=== PATIENT | female | born 1965 ===

== ENCOUNTER 2017-04-26 08:36 | Day surgery (SDC) | payer OTHER ==
[2017-04-26 09:09] VITALS: BMI 29.2
[2017-04-26] MEDS ORDERED: Lidocaine Hydrochloride 5 ML INJ ONE (10:06)
[2017-04-26] MEDS ORDERED: Propofol 10 mg/ml Inj (20 ML) ONE (10:06)
[2017-04-26] MEDS ORDERED: Lactated Ringer's 1,000 ML IV ONE (10:15)
[2017-04-26] MEDS ORDERED: Bupivacaine HCl 0.5% PF (10 ml) Inj ONE (10:17)
[2017-04-26] MEDS ORDERED: methylPREDNISolone Depo 80 mg/ml Inj ONE (10:17)
[2017-04-26] MEDS ORDERED: Lidocaine 1% Inj (20ml) ONE (10:21)
[2017-04-26] MEDS ORDERED: Midazolam 2 MG/2 ML VIAL ONE (10:23)
[2017-04-26] MEDS ORDERED: Bupivacaine HCl 0.5% PF (10 ml) Inj IJ ONE (10:25)
[2017-04-26] MEDS ORDERED: Lidocaine 1% Inj (20ml) IJ ONE (10:25)
[2017-04-26] MEDS ORDERED: methylPREDNISolone Depo 80 mg/ml Inj IM ONE (10:25)
[2017-04-26] MEDS ORDERED: Lactated Ringer's 1,000 ML IV SCH (10:36)
[2017-04-26] MEDS ORDERED: HYDROmorphone 0.5 mg/0.5 ml ISec IVP PRN (10:36)
[2017-04-26 10:53] VITALS: RESP 18
[2017-04-26 12:02] VITALS: BP 138/77; PULSE 60; TEMP 98
--- NOTE | 2017-04-26 13:11 | PCM.OP ---
Operative Report - Operative Report Date of Surgery/Procedure: 04/26/17 Time of Surgery/Procedure: 10:30 Surgeon: Von Anesthesia/Sedation: Monitored anesthesia care Pre-Operative Diagnosis: Lumbar facet syndrome Post-Operative Diagnosis: Same Indication for Surgery: Intractable pain Operative Findings: See below. Procedure/Operation Description: V discussion of the procedure with the patient including its risks benefits alternatives all continue the possibility of no effect with increased pain patient consented to the procedure. She denies any recent infections bleeding tendencies or being on anticoagulants decision was then made to proceed to the OR. Patient was placed on a fluoroscopy table in a prone position with 2 pillows underneath her abdomen. The back was prepped and draped in the usual sterile fashion and sterile technique was adhered to drain and her procedure. The L3-L4 and L5 medial branch nerves are located at the intersection of the superior articular process and the transverse process at the L3-4 and L5 pedicle and also the sacral area. The procedure was first performed a right-sided return of fluoroscopy towards the right approximately 15 . The skin overlying the 3 above target areas was then infiltrated with 1% lidocaine using 25-gauge needle. Subsequently a 22-gauge 3-1/2 inch spinal needle was incrementally advanced under fluoroscopic guidance until tip in the midline contact with all 3 target areas. After satisfactory positioning of all 3 needles approximately 3 mL of 0.5% Marcaine and Depo-Medrol mixture was injected. The needle was then removed and same exact procedure was performed on the contralateral left side using the same medications and techniques. That L patient's back was clean and dry and bandages were applied. Patient was then transferred to the recovery area in good conditions without any signs of HOME CARE ATTENDANT toxicity or any neurological deficit. She will have a following office in approximately 2-3 weeks. End of dictation Estimated Blood Loss: None. Complications: None. Discharge & Condition: Stable to home.
[2017-04-26 13:14] VITALS: O2SAT 98
== END 2017-04-26 12:25 | disposition home or self-care (01) ==
LOC: H.OPSURG 08:36
PROVIDERS: ATTEND Anesthesiology
DX: M46.96 Unspecified inflammatory spondylopathy, lumbar region (principal)

== ENCOUNTER 2017-12-11 07:36 | Day surgery (SDC) | payer OTHER ==
[2017-12-11 08:21] VITALS: BMI 28.3
[2017-12-11] MEDS ORDERED: Propofol 10 mg/ml Inj (20 ML) ONE (08:52)
[2017-12-11] MEDS ORDERED: MIDAZOLAM HCL 10 MG/2 ML IV ONE (08:52)
[2017-12-11] MEDS ORDERED: Midazolam 2 MG/2 ML VIAL ONE ×2 (08:53→10:14)
[2017-12-11] MEDS ORDERED: Lidocaine 2% MPF (5 ml) Inj ONE (08:55)
[2017-12-11] MEDS ORDERED: methylPREDNISolone Depo 80 mg/ml Inj ONE (09:06)
[2017-12-11] MEDS ORDERED: Lidocaine 1% Inj (20ml) ONE (09:07)
[2017-12-11] MEDS ORDERED: Bupivacaine HCl 0.5% PF (10 ml) Inj ONE (09:07)
[2017-12-11] MEDS ORDERED: Lactated Ringer's 1,000 ML IV ONE (09:20)
[2017-12-11 10:56] VITALS: BP 152/90; PULSE 73; RESP 18; TEMP 97.8
[2017-12-11 11:00] VITALS: O2SAT 99
--- NOTE | 2017-12-11 11:52 | OP ---
PROCEDURE DATE: 12/11/2017 PREOPERATIVE DIAGNOSIS: Lumbar facet syndrome. POSTOPERATIVE DIAGNOSIS: Lumbar facet syndrome. PROCEDURE: Right L3, L4 and L5 medial branch nerve block. SURGEON: Ansley Longoria MD ANESTHESIOLOGIST: Dr. Mcintyre. TYPE OF ANESTHESIA: Monitored anesthesia care. COMPLICATIONS: None. SPECIMEN: None. DESCRIPTION OF PROCEDURE: As follows: After we had discussion of the procedure with the patient including its risks, benefits, alternatives, outcome data, possibility of no effect or increased pain, the patient consented to the procedure. She denies any recent infection, bleeding tendencies or being on anticoagulants, a decision was then made to proceed to the OR. The patient was then placed on the fluoroscopy table in a prone position with 2 pillows underneath her abdomen. The back was prepped and draped in the usual sterile fashion and sterile technique was adhered to during the entire procedure. The L3, L4 and L5 medial branch nerves were located at the intersection of the superior articular process and the transverse process of the L3, L4 and L5 pedicles respectively. The three above target areas were visualized by turning the fluoroscopy towards the right at approximately 15 degrees. The skin overlying the three above target areas was then infiltrated with 1% lidocaine using a 25-gauge needle. Subsequently, a 22-gauge 3.5-inch spinal needle was then incrementally advanced under fluoroscopic guidance until tip of the needle made bony contact with all three target areas. After satisfactory positioning of all three needles, approximately 3 mL of 0.5% Marcaine and Depo-Medrol mixture was injected. The needles were then removed and the patient's back was cleaned and dry bandages were applied. The patient was then transferred to the recovery area in good condition without any signs of CHARGE MASTER SPECIALIST toxicity or any neurological deficit. She will follow up in our office in approximately two to four weeks. Ansley Longoria MD
--- NOTE | 2017-12-12 16:39 | RAD ---
PROCEDURE: Intraoperative fluoroscopy HISTORY: Pain Management COMPARISON: Not available TECHNIQUE: Intraoperative fluoroscopy was provided for epidural injection. Total time of fluoroscopy was 19.0 seconds. FINDINGS: Two fluoroscopic spot films are submitted. IMPRESSION: Fluoroscopy provided.
== END 2017-12-11 10:50 | disposition home or self-care (01) ==
LOC: H.OPSURG 07:36
PROVIDERS: ATTEND Anesthesiology
DX: M43.06 Spondylolysis, lumbar region (principal)
CPT/HCPCS: 64493; 64494; 76000; J1040; J2250; J2704; J3010; J7120

== ENCOUNTER 2018-03-16 08:42 | Day surgery (SDC) | payer OTHER ==
[2018-03-13 14:42] VITALS: BMI 30.2
[2018-03-16] MEDS ORDERED: Lactated Ringer's 1,000 ML IV ONE (09:18)
[2018-03-16] MEDS ORDERED: methylPREDNISolone Depo 80 mg/ml Inj ONE (10:05)
[2018-03-16] MEDS ORDERED: Bupivacaine HCl 0.5% PF (30 ml) Inj ONE (10:05)
[2018-03-16] MEDS ORDERED: Lidocaine 2% MPF (5 ml) Inj ONE (10:06)
[2018-03-16] MEDS ORDERED: Lidocaine 1% 5ml Abboject IV ONE (10:15)
[2018-03-16] MEDS ORDERED: Midazolam 2 MG/2 ML VIAL ONE ×2 (10:15→10:29)
[2018-03-16] MEDS ORDERED: Propofol 10 mg/ml Inj (20 ML) ONE (10:15)
[2018-03-16] MEDS ORDERED: methylPREDNISolone Depo 80 mg/ml Inj IM ONE (10:25)
[2018-03-16] MEDS ORDERED: Lidocaine 2% Inj (20ml) IJ ONE (10:25)
[2018-03-16] MEDS ORDERED: Bupivacaine HCl 0.5% PF (30 ml) Inj IJ ONE (10:25)
[2018-03-16] MEDS ORDERED: HYDROmorphone 0.5 mg/0.5 ml ISec IVP PRN (10:51)
[2018-03-16] MEDS ORDERED: Lactated Ringer's 1,000 ML IV SCH (11:00)
[2018-03-16] MEDS ORDERED: Oxycodone/Acetaminophen 5/325 mg Tab PO PRN (11:24)
[2018-03-16 11:56] VITALS: O2SAT 98
[2018-03-16 12:00] VITALS: BP 133/88; PULSE 59; RESP 14; TEMP 98
--- NOTE | 2018-03-16 13:29 | OP ---
PROCEDURE DATE: 03/16/2018 PREOPERATIVE DIAGNOSIS: Lumbar facet syndrome. POSTOPERATIVE DIAGNOSIS: Lumbar facet syndrome. PROCEDURE: Right L3, L4, and L5 medial branch nerve radiofrequency. SURGEON: Ansley Longoria MD TYPE OF ANESTHESIA: Monitored anesthesia care. ANESTHESIA ADMINISTERED BY: Juancarlos Francis MD COMPLICATIONS: None. SPECIMENS: None. DESCRIPTION OF PROCEDURE: After we had discussion of the procedure with the patient including its risks, benefits, alternatives, outcome data, possibility of no effect or increased pain, the patient consented to the procedure. She denied any recent infection, bleeding tendencies or being on anticoagulants, a decision was then made to proceed to the OR. The patient was placed on a fluoroscopy table in a prone position with two pillows underneath her abdomen. The back was prepped and draped in the usual sterile fashion and a sterile technique was adhered during the entire procedure. The L3, L4 and L5 medial branch nerves are located at the intersection of the superior articular process and the transverse process of the L4 and L5 pedicle. The target was visualized by turning the fluoroscopy towards the right at approximately 15 degrees. The skin overlying the three above target areas were then infiltrated with 1% lidocaine using 25-gauge needle. Subsequently, a 20-gauge 3.5 inch Stimuplex needle was then incrementally advanced under fluoroscopic guidance until the tip of needle made bony contact with all three target areas. After satisfactory positioning of all three needles, sensory and motor testing was carried out to satisfactory results. The patient reports concordant pain in the right lower back without any pain shooting down to her right foot. There was muscle twitching of the right paraspinal muscles without any involvement of the lower leg muscles. After satisfactory confirmation, each nerve was anesthetized with 1% lidocaine. Radiofrequency was then carried out at 80 degrees Celsius for approximately one minute. The needle was then turned 60 degrees and radiofrequency was repeated. This was done twice more after the initial . At the end of the procedure, each nerve was treated with a combination of 0.5% Marcaine and Depo-Medrol. At the end of the case, the patient's back was cleaned and dried and bandages were applied. The patient was then transferred to recovery area in good condition without any signs of SUPERVISOR [employer]ATING [employer] POINT ASSEMBLY toxicity or any neurological deficit. She will have a followup in our office in approximately 2 to 4 weeks. En-Bello Longoria MD [facility] # [id number]
--- NOTE | 2018-03-20 13:09 | RAD ---
PROCEDURE: Fluoroscopy, lumbar epidural. HISTORY: PAIN MANAGEMENT COMPARISON: None TECHNIQUE: Standard protocol for this study/examination. FINDINGS: Total fluoroscopic time (continuous mode) utilized during the procedure 27.0 (seconds). Total exam DLP: (mGy) 6.10 IMPRESSION: Less than 1 hr fluoroscopic time utilized during performance of the procedure.
== END 2018-03-16 12:20 | disposition home or self-care (01) ==
LOC: H.OPSURG 08:42
PROVIDERS: ATTEND Anesthesiology
DX: M43.06 Spondylolysis, lumbar region (principal)
CPT/HCPCS: 64635; 64636; J1040; J2250; J2704; J2765; J3010; J7120

== ENCOUNTER → 2019-02-05 | Day surgery (SDC) | payer OTHER ==
[~2019-02-05] MED LIST: Bupivacaine HCl 0.25% PF (30 ml) Inj ONE; HYDROmorphone 0.5 mg/0.5 ml ISec IVP PRN; Iohexol 300 10 ML ONE; Lactated Ringer's 500 ML IV ONE; Lidocaine 1% Inj (20ml) ONE; MethylPREDNISolone Depo 40 mg/ml Inj ONE; Midazolam 2 MG/2 ML VIAL ONE; Propofol 10 mg/ml Inj (20 ML) ONE; Sodium Chloride 0.9% 1,000 ML IV SCH; Sodium Chloride 0.9% 500 ML IV STA
[2019-02-05 08:27] VITALS: BMI 26.0
--- NOTE | 2019-02-05 08:47 | ED PDOC ---
HPI: Back Time Seen by Provider: 02/05/19 08:43 Chief Complaint (Nursing): Back Pain Chief Complaint (Provider): Back Pain History Per: Patient History/Exam Limitations: no limitations Onset/Duration Of Symptoms: Days Current Symptoms Are (Timing): Still Present Quality Of Discomfort: "Pain" Additional Complaint(s): 53 year old female with a history of back problems presents to the ED for an evaluation of back pain. Patient complains for lower back pain at the center that radiates to both her legs. Otherwise, patient denies fever, chest pain, weakness, numbness, tingling, incontinence, frequency, dysuria or abdominal pain. She took no medication for pain. PMD: Ansley Longoria Past Medical History Reviewed: Historical Data, Nursing Documentation, Vital Signs Vital Signs: Last Vital Signs Temp 98.6 F 02/05/19 08:27 Pulse 67 02/05/19 08:27 Resp 17 02/05/19 08:27 BP 147/85 02/05/19 08:27 Pulse Ox 100 02/05/19 08:27 - Medical History PMH: Anxiety, Asthma (NEVER HOSPITALIZED- HASN'T USED INHALER IN A LONG TIME), HTN (pt no longer takes meds for this.), Kidney Stones, Chronic Kidney Disease Denies: HIV - Surgical History Surgical History: Endoscopy, (x 2) - Family History Family History: States: Unknown Family Hx - Home Medications Home Medications: Ambulatory Orders Medication Instructions Recorded RX: Alprazolam [Xanax] 1 mg PO BID 02/27/15 RX: Biotin 1 cap PO DAILY 03/16/16 RX: Cholecalciferol [Vitamin D 1,000 unit PO DAILY 03/16/16 1000 IU] RX: Ferrous Sulfate [Feosol] 325 mg PO DAILY 03/16/16 RX: Zolpidem [Ambien] 10 mg PO HS 03/16/16 Lidocaine 5% [Lidoderm] 5 appl TP DAILY 03/16/18 Oxycodone HCl/Acetaminophen 1 tab PO BID PRN 03/16/18 [Endocet 325 mg-10 mg] - Allergies Allergies/Adverse Reactions: Allergies Allergy/AdvReac Type Severity Reaction Status Date / Time dog dander Allergy SHORTNESS Verified 03/16/18 09:34 OF BREATH moxifloxacin HCl Allergy SWELLING Verified 03/16/18 09:34 [From Avelox] Review of Systems ROS Statement: Except As Marked, All Systems Reviewed And Found Negative Constitutional: Negative for: Fever Cardiovascular: Negative for: Chest Pain Respiratory: Negative for: Shortness of Breath Gastrointestinal: Negative for: Abdominal Pain Genitourinary Female: Negative for: Dysuria, Frequency, Incontinence Musculoskeletal: Positive for: Back Pain Neurological: Negative for: Weakness, Numbness, Other (tingling ) Physical Exam - Reviewed Nursing Documentation Reviewed: Yes Vital Signs Reviewed: Yes - Physical Exam Appears: Positive for: Non-toxic, No Acute Distress Head Exam: Positive for: ATRAUMATIC, NORMAL INSPECTION, NORMOCEPHALIC Skin: Positive for: Normal Color, Warm, Dry. Negative for: Rash Eye Exam: Positive for: EOMI, Normal appearance, PERRL ENT: Positive for: Normal ENT Inspection Neck: Positive for: Normal, Painless ROM, Supple. Negative for: Decreased ROM Cardiovascular/Chest: Positive for: Regular Rate, Rhythm. Negative for: Murmur Respiratory: Positive for: Normal Breath Sounds. Negative for: Wheezing, Respiratory Distress Gastrointestinal/Abdominal: Positive for: Normal Exam, Soft. Negative for: Tenderness Back: Positive for: Other (tenderness across lower back ) Extremity: Positive for: Normal ROM. Negative for: Tenderness, Pedal Edema, Deformity Neurological/Psych: Positive for: Awake, Alert, Normal Tone, Oriented (x3) - ECG O2 Sat by Pulse Oximetry: 100 (RA) Pulse Ox Interpretation: Normal - Progress ED Course And Treament: 936: Spoke with Dr. Longoria. Will take pt. to the OR. Medical Decision Making Medical Decision Making: Time: 843 Impression: Back Pain Plan: Normal Saline 100 mls/hr Scribe Attestation: Documented by Theo Carter, acting as a scribe for Roberto Chan MD Provider Scribe Attestation: All medical record entries made by the Scribe were at my direction and personally dictated by me. I have reviewed the chart and agree that the record accurately reflects my personal performance of the history, physical exam, medical decision making, and the department course for this patient. I have also personally directed, reviewed, and agree with the discharge instructions and disposition. Disposition - Clinical Impression Clinical Impression: Back pain - Patient ED Disposition Is Patient to be Admitted: Yes Counseled Patient/Family Regarding: Diagnosis - Disposition Disposition Time: 09:00 Condition: FAIR - Pt Status Changed To: Hospital Disposition Of: SDS- Endo,OR,Cath,IR
[2019-02-05 11:18] VITALS: O2SAT 99
[2019-02-05 12:09] VITALS: BP 167/92; PULSE 50; RESP 18; TEMP 97.2
--- NOTE | 2019-02-05 12:31 | RAD ---
Date of service: 02/05/2019 PROCEDURE: Fluoroscopy up to 1 hr. HISTORY: EPIDURAL COMPARISON: None TECHNIQUE: Standard protocol for this study/examination. FINDINGS: Total fluoroscopic time (continuous mode) utilized during the procedure 38.7 seconds. Total exam DLP: 7.50 (mGy). IMPRESSION: Less than 1 hr fluoroscopic assistance provided during performance of the procedure.
--- NOTE | 2019-02-05 21:35 | OP ---
PROCEDURE DATE: 02/05/2019 PREOPERATIVE DIAGNOSIS: Lumbar radiculopathy. POSTOPERATIVE DIAGNOSIS: Lumbar radiculopathy. PROCEDURE: Right L4-L5, L5-S1 transforaminal epidural steroid injection. ANESTHESIOLOGIST: Juancarlos Francis MD SURGEON: Saranya Longoria MD TYPE OF ANESTHESIA: Monitored anesthesia care. COMPLICATIONS: None. SPECIMEN: None. DESCRIPTION OF PROCEDURE: Procedure is as follows: After we had a discussion of the procedure with the patient including its risks, benefits, alternatives, outcome data, possibility of no effect or increased pain, the patient consented to the procedure. She denied any recent infection, bleeding tendencies, or being on anticoagulants. Decision was then made to proceed to the OR. The patient was placed on the fluoroscopy table in a prone position with two pillows underneath her abdomen. The back was prepped and draped in the usual sterile fashion. A sterile technique was adhered to during the entire procedure. The L4 and L5 vertebral levels were first identified in the anteroposterior view. Angulation towards the right at approximately 25 degrees was used to maximize the visualization of the right L4 and L5 pedicles. The skin overlying the 6 o'clock position of both pedicles was then infiltrated with 1% lidocaine using a 25-gauge needle. Subsequently, a 22-gauge 5-inch spinal needle was then incrementally advanced under fluoroscopic guidance until tip of the needle walked into the intervertebral foramen. After satisfactory positioning of both needles, approximately 0.5 mL of Isovue contrast was injected showing appropriate spread in the epidural space and also the nerve sheath. The needle was then re-adjusted, so that the injection is . The patient denies paresthesia during the administration of the medication. At this point, approximately 3 mL of 0.25% Marcaine and Depo-Medrol mixture was injected. At the end of the case, the patient's back was cleaned and dry bandage was applied. The patient was then transferred to the recovery area in good condition without any signs of SUPERVISOR CHANNEL PROCESS toxicity or any neurological deficit. She will be following up in our office in approximately two to four weeks. Ansley Longoria MD
== END | disposition home or self-care (01) ==
LOC: H.ER 08:23 → H.SDS 08:44 → H.ER 09:35
PROVIDERS: ATTEND Anesthesiology
DX: M54.16 Radiculopathy, lumbar region (principal); J45.909 Unspecified asthma, uncomplicated; N18.9 Chronic kidney disease, unspecified; I12.9 Hypertensive chronic kidney disease with stage 1 through stage 4 chronic kidney disease, or unspecified chronic kidney disease; F41.9 Anxiety disorder, unspecified; Z87.442 Personal history of urinary calculi
CPT/HCPCS: 64483; 81025; 99282; J1030; J1170; J2250; J2704; J3010; J7040; J7120; Q9967